=== PATIENT | female | born 1960 | race Caucasian/White ===

== ENCOUNTER 2020-06-22 17:10 | Observation (INO) ==
[2020-06-22 17:47] LABS: Bacteria,Urine Few per hpf (None-Few); Bilirubin,Urine Negative (Negative); Blood,Urine Negative (Negative); Clarity,Urine Clear (Clear); Color,Urine Yellow (Yellow); Glucose,Urine (UA) Normal (Normal); Ketones,Urine Trace mg/dL (Negative); Leukocyte Esterase,Urine Trace (Negative); Nitrite,Urine Negative (Negative); Protein,Urine Negative (Neg-Trace); RBC,Urine 0-3 per hpf (0-3); Specific Gravity,Urine 1.023 (1.010-1.025); Squamous Epithelial Cell,Urine Few per hpf (None-Few); Urobilinogen,Urine Normal (Normal); WBC,Urine 0-3 per hpf (0-3)
[2020-06-22] MEDS ORDERED: Ketorolac 15 MG/ML VIAL IVP ONE (17:54)
[2020-06-22 17:59] LABS: Hematocrit 38.8 % (35.3-44.9); Hemoglobin 12.8 g/dL (11.5-15.4); Mean Corpuscular Hemoglobin 29.4 pg (28.0-33.3); Mean Platelet Volume 9.3 fL (9.4-12.4); Platelet Count 213 K/mcL (140-400); Red Blood Count 4.36 M/mcL (3.82-4.97); Red Cell Distribution Width 12.6 % (11.5-14.5); White Blood Count 5.7 K/mcL (4.3-11.1)
[2020-06-22 18:14] LABS: Alanine Aminotransferase 257 Units/L (7-52); Albumin 4.2 g/dL (3.5-5.7); Albumin/Globulin Ratio 1.6 (1.1-2.2); Alkaline Phosphatase 317 Units/L (34-104); Aspartate Amino Transferase 126 Units/L (13-39); BUN/Creatinine Ratio 14 (6-26); Bilirubin,Direct 0.9 mg/dL (0.0-0.2); Bilirubin,Total 1.9 mg/dL (0.3-1.0); Blood Urea Nitrogen 12 mg/dL (8-23); Calcium 9.7 mg/dL (8.6-10.3); Carbon Dioxide 28 mEq/L (23-29); Chloride 102 mEq/L (98-107); Globulin 2.7 g/dL (2.4-3.5); Glucose 125 mg/dL (70-105); Lipase 43 Units/L (11-82); Osmolality,Calculated 289 (280-300); Potassium 3.1 mEq/L (3.5-5.1); Sodium 139 mEq/L (136-145); Total Protein 6.9 g/dL (6.4-8.9); eGFR For African Americans > 60 (> 60); eGFR For Non-African Americans > 60 (> 60)
[2020-06-22] MEDS ORDERED: *HR* FentaNYL (PF) 100 MCG/2 ML VIAL IVP ONE (18:18)
[2020-06-22] MEDS ORDERED: Ondansetron 4 MG/2 ML VIAL IVP ONE (18:19)
[2020-06-22] MEDS ORDERED: Potassium Effervescent 25 MEQ TABLET.EFF PO ONE (18:53)
[2020-06-22] MEDS ORDERED: 0.9 % Sodium Chloride 1,000 ML IVC ONE (20:52)
[2020-06-22] MEDS ORDERED: Naloxone 0.4 MG/ML INJ IVP PRN (21:09)
[2020-06-22] MEDS ORDERED: Ondansetron 4 MG/2 ML VIAL IVP PRN (21:09)
[2020-06-22] MEDS ORDERED: Ketorolac 15 MG/ML VIAL IVP PRN (21:09)
[2020-06-22] MEDS ORDERED: 0.9 % Sodium Chloride 1,000 ML IVC SCH (21:15)
[2020-06-22 22:10] LABS: Adenovirus Not Detected (Not Detect); Bordetella Pertussis Not Detected (Not Detect); Chlamydophila pneumoniae Not Detected (Not Detect); Coronavirus 229E Not Detected (Not Detect); Coronavirus HKU1 Not Detected (Not Detect); Coronavirus NL63 Not Detected (Not Detect); Coronavirus OC43 Not Detected (Not Detect); Human Metapneumovirus Not Detected (Not Detect); Human Rhinovirus/Enterovirus Not Detected (Not Detect); Influenza A Subtype 2009 H1 Not Detected (Not Detect); Influenza B Not Detected (Not Detect); Mycoplasma pneumoniae Not Detected (Not Detect); Parainfluenza Virus 1 Not Detected (Not Detect); Parainfluenza Virus 2 Not Detected (Not Detect); Parainfluenza Virus 3 Not Detected (Not Detect); Parainfluenza Virus 4 Not Detected (Not Detect); Respiratory Syncytial Virus Not Detected (Not Detect); SARS-CoV-2 Not Detected (Not Detect)
[2020-06-23] MEDS ORDERED: Ondansetron 4 MG/2 ML VIAL IVP PRN ×4 (00:23→14:44)
[2020-06-23] MEDS ORDERED: Pantoprazole 40 MG VIAL IVP SCH (00:30)
[2020-06-23] MEDS ORDERED: *HR* OxyCODONE Immed Rel 5 MG TABLET PO PRN ×3 (03:59→14:44)
[2020-06-23 05:04] LABS: Prothrombin Time 11.1 Seconds (9.4-12.1)
[2020-06-23 05:05] LABS: Activated Partial Thrombo Time 27.5 Seconds (26.0-36.0)
[2020-06-23 05:10] LABS: Basophils # 0.1 K/mcL (0.0-0.2); Basophils % 1.1 %; Eosinophils % 0.9 %; Hematocrit 37.6 % (35.3-44.9); Hemoglobin 12.4 g/dL (11.5-15.4); Immature Granulocytes % 0.2 % (0-4); Lymphocytes # 1.5 K/mcL (0.6-4.6); Lymphocytes % 33.5 %; Mean Corpuscular Hemoglobin 30.7 pg (28.0-33.3); Mean Corpuscular Volume 93.1 fL (83.0-100.0); Mean Platelet Volume 9.9 fL (9.4-12.4); Monocytes # 0.3 K/mcL (0.0-1.3); Monocytes % 7.5 %; Neutrophils # 2.5 K/mcL (1.6-8.9); Platelet Count 194 K/mcL (140-400); Red Blood Count 4.04 M/mcL (3.82-4.97); Red Cell Distribution Width 12.6 % (11.5-14.5); Segmented Neutrophils % 56.8 %; White Blood Count 4.4 K/mcL (4.3-11.1)
[2020-06-23 05:12] LABS: Albumin 3.7 g/dL (3.5-5.7); Albumin/Globulin Ratio 1.5 (1.1-2.2); Bilirubin,Direct 1.7 mg/dL (0.0-0.2); Bilirubin,Indirect 1.3 mg/dL (0.0-1.0); Globulin 2.4 g/dL (2.4-3.5); Total Protein 6.1 g/dL (6.4-8.9)
[2020-06-23 05:13] LABS: Alanine Aminotransferase 216 Units/L (7-52); Albumin 3.7 g/dL (3.5-5.7); Albumin/Globulin Ratio 1.5 (1.1-2.2); Alkaline Phosphatase 277 Units/L (34-104); Aspartate Amino Transferase 112 Units/L (13-39); BUN/Creatinine Ratio 12 (6-26); Blood Urea Nitrogen 11 mg/dL (8-23); Calcium 9.1 mg/dL (8.6-10.3); Carbon Dioxide 29 mEq/L (23-29); Chloride 105 mEq/L (98-107); Globulin 2.4 g/dL (2.4-3.5); Glucose 113 mg/dL (70-105); Osmolality,Calculated 290 (280-300); Potassium 3.7 mEq/L (3.5-5.1); Sodium 140 mEq/L (136-145); Total Protein 6.1 g/dL (6.4-8.9); eGFR For African Americans > 60 (> 60); eGFR For Non-African Americans 60 (> 60)
[2020-06-23 05:28] LABS: Thyroid Stimulating Hormone 3.102 mcIU/mL (0.340-5.600)
[2020-06-23] MEDS ORDERED: *HR* FentaNYL (PF) 100 MCG/2 ML VIAL ONE (12:03)
[2020-06-23] MEDS ORDERED: *HR* Propofol 200 MG/20 ML VIAL IVP ONE (12:04)
[2020-06-23] MEDS ORDERED: Lidocaine -MPF 2% 2 ML VIAL ONE (12:05)
[2020-06-23] MEDS ORDERED: Ondansetron 4 MG/2 ML VIAL ONE (12:05)
[2020-06-23] MEDS ORDERED: *HR* Succinylcholine 200 MG/10 ML VIAL IVP ONE (12:05)
[2020-06-23] MEDS ORDERED: Dexamethasone 4 MG/ML VIAL ONE (12:05)
[2020-06-23] MEDS ORDERED: *HR* Rocuronium Bromide 50 MG/5 ML VIAL ONE (12:05)
[2020-06-23] MEDS ORDERED: Lidocaine HCL 4 ML Topical Solution (Laryng-O-Jet Kit Sterile Pak) TP ONE (12:06)
[2020-06-23] MEDS ORDERED: *HR* Promethazine 25 MG/ML VIAL IVP PRN (12:22)
[2020-06-23] MEDS ORDERED: *HR* HYDROmorphone PF 0.5 MG/0.5 ML SYRINGE IVP PRN (12:22)
[2020-06-23] MEDS ORDERED: ceFAZolin 2,000 MG in 0.9 % Sodium Chloride 100 ML IVPB ONE (12:46)
[2020-06-23] MEDS ORDERED: Ketorolac 30 MG/ML VIAL ONE (13:21)
[2020-06-23] MEDS ORDERED: Naloxone 0.4 MG/ML INJ IVP PRN (14:09)
[2020-06-23] MEDS ORDERED: *HR* OxyCODONE/APAP 5/325 TABLET PO PRN (14:09)
[2020-06-23] MEDS ORDERED: *HR* Meperidine 25 MG/ML SYRINGE IVP PRN (14:44)
[2020-06-23] MEDS: *HR* Meperidine 25 MG/ML SYRINGE IVP PRN ×2 (14:45→15:00)
[2020-06-23] MEDS ORDERED: Ringers Solution, Lactated 1,000 ML IVC SCH (14:45)
[2020-06-23] MEDS: Ketorolac 15 MG/ML VIAL IVP SCH ×2 (17:25→23:51)
[2020-06-23] MEDS: CeFAZolin 2 GM/120 ML BAG IVPB SCH ×2 (17:26→23:52)
[2020-06-24 02:11] LABS: Basophils % 0.4 %; Hematocrit 36.7 % (35.3-44.9); Immature Granulocytes % 0.2 % (0-4); Lymphocytes # 0.6 K/mcL (0.6-4.6); Lymphocytes % 11.6 %; Mean Corpuscular HGB Conc 32.7 g/dL (31.6-35.5); Mean Corpuscular Hemoglobin 30.5 pg (28.0-33.3); Mean Corpuscular Volume 93.1 fL (83.0-100.0); Mean Platelet Volume 10.2 fL (9.4-12.4); Monocytes # 0.3 K/mcL (0.0-1.3); Monocytes % 5.7 %; Neutrophils # 3.9 K/mcL (1.6-8.9); Platelet Count 167 K/mcL (140-400); Red Blood Count 3.94 M/mcL (3.82-4.97); Red Cell Distribution Width 12.5 % (11.5-14.5); Segmented Neutrophils % 82.1 %; White Blood Count 4.8 K/mcL (4.3-11.1)
[2020-06-24 02:34] LABS: Alanine Aminotransferase 201 Units/L (7-52); Albumin 3.5 g/dL (3.5-5.7); Albumin/Globulin Ratio 1.6 (1.1-2.2); Alkaline Phosphatase 235 Units/L (34-104); Aspartate Amino Transferase 121 Units/L (13-39); BUN/Creatinine Ratio 11 (6-26); Bilirubin,Total 0.7 mg/dL (0.3-1.0); Blood Urea Nitrogen 8 mg/dL (8-23); Calcium 8.5 mg/dL (8.6-10.3); Carbon Dioxide 24 mEq/L (23-29); Chloride 107 mEq/L (98-107); Globulin 2.2 g/dL (2.4-3.5); Glucose 105 mg/dL (70-105); Osmolality,Calculated 289 (280-300); Potassium 4.2 mEq/L (3.5-5.1); Sodium 140 mEq/L (136-145); Total Protein 5.7 g/dL (6.4-8.9); eGFR For African Americans > 60 (> 60); eGFR For Non-African Americans > 60 (> 60)
[2020-06-24] MEDS: Ketorolac 15 MG/ML VIAL IVP SCH (06:25)
[2020-06-24] MEDS ORDERED: Pantoprazole 40 MG VIAL IVP SCH (09:00)
[2020-06-24] MEDS: CeFAZolin 2 GM/120 ML BAG IVPB SCH (09:54)
[2020-06-24 10:43] VITALS: BP 123/74
[2020-06-24] MEDS ORDERED: FLU Vac QV 20-21 (6Month+)/PF 0.5 ML SYRINGE IM ONE (12:17)
== END 2020-06-24 12:45 | disposition home or self-care (01) ==
LOC: EMEROOARM 17:10 → 3ANU 17:10 → SUATTDRO 22:15 → 3ANU 22:40
PROVIDERS: ADMIT Student in an Organized Health Care Education/Training Program; ATTEND Student in an Organized Health Care Education/Training Program

== ENCOUNTER 2020-06-25 22:10 | Observation (INO) ==
[2020-06-25] MEDS ORDERED: Isovue-370 500 ML BOTTLE IVP ONE (22:24)
[2020-06-25] MEDS ORDERED: Ondansetron 4 MG/2 ML VIAL IVP ONE (22:25)
[2020-06-25] MEDS ORDERED: *HR* FentaNYL (PF) 100 MCG/2 ML VIAL IVP ONE (22:25)
[2020-06-25] MEDS ORDERED: Famotidine 20 MG/2 ML VIAL IVP ONE (22:32)
[2020-06-25 22:52] LABS: Basophils # 0.1 K/mcL (0.0-0.2); Basophils % 0.7 %; Eosinophils % 0.4 %; Hematocrit 40.8 % (35.3-44.9); Hemoglobin 12.9 g/dL (11.5-15.4); Immature Granulocytes % 0.5 % (0-4); Lymphocytes # 1.5 K/mcL (0.6-4.6); Lymphocytes % 20.4 %; Mean Corpuscular HGB Conc 31.6 g/dL (31.6-35.5); Mean Corpuscular Hemoglobin 29.7 pg (28.0-33.3); Mean Platelet Volume 9.7 fL (9.4-12.4); Monocytes # 0.5 K/mcL (0.0-1.3); Monocytes % 7.2 %; Neutrophils # 5.3 K/mcL (1.6-8.9); Platelet Count 187 K/mcL (140-400); Red Blood Count 4.34 M/mcL (3.82-4.97); Red Cell Distribution Width 12.4 % (11.5-14.5); Segmented Neutrophils % 70.8 %
[2020-06-25 22:55] LABS: White Blood Count 7.5 K/mcL (4.3-11.1)
[2020-06-25 22:59] LABS: Prothrombin Time 11.4 Seconds (9.4-12.1)
[2020-06-25 23:23] LABS: Alanine Aminotransferase 99 Units/L (7-52); Albumin 3.9 g/dL (3.5-5.7); Albumin/Globulin Ratio 1.3 (1.1-2.2); Alkaline Phosphatase 211 Units/L (34-104); Aspartate Amino Transferase 56 Units/L (13-39); BUN/Creatinine Ratio 13 (6-26); Bilirubin,Direct 0.2 mg/dL (0.0-0.2); Bilirubin,Indirect 0.6 mg/dL (0.0-1.0); Bilirubin,Total 0.8 mg/dL (0.3-1.0); Blood Urea Nitrogen 11 mg/dL (8-23); Calcium 8.9 mg/dL (8.6-10.3); Carbon Dioxide 28 mEq/L (23-29); Chloride 104 mEq/L (98-107); Glucose 106 mg/dL (70-105); Lipase 15 Units/L (11-82); Osmolality,Calculated 288 (280-300); Potassium 3.8 mEq/L (3.5-5.1); Sodium 139 mEq/L (136-145); Total Protein 6.9 g/dL (6.4-8.9); eGFR For African Americans > 60 (> 60); eGFR For Non-African Americans > 60 (> 60)
[2020-06-26 01:02] LABS: Bilirubin,Urine Negative (Negative); Blood,Urine Negative (Negative); Clarity,Urine Clear (Clear); Color,Urine Colorless (Yellow); Glucose,Urine (UA) Normal (Normal); Ketones,Urine Negative (Negative); Leukocyte Esterase,Urine Negative (Negative); Nitrite,Urine Negative (Negative); PH,Urine 6.5 pH Units (5.0-8.0); Protein,Urine Negative (Neg-Trace); Urobilinogen,Urine Normal (Normal)
[2020-06-26] MEDS ORDERED: *HR* FentaNYL (PF) 100 MCG/2 ML VIAL IVP ONE (01:03)
[2020-06-26] MEDS ORDERED: *HR* OxyCODONE/APAP 10/325 TABLET PO PRN (04:11)
[2020-06-26] MEDS: Morphine Sulfate 2 MG/ML SYRINGE IVP PRN ×2 (04:58→11:30)
[2020-06-26] MEDS: 0.9 % Sodium Chloride 1,000 ML IVC SCH ×3 (04:59→23:56)
[2020-06-26] MEDS ORDERED: Ondansetron 4 MG/2 ML VIAL IVP PRN ×2 (05:02→08:44)
[2020-06-26] MEDS ORDERED: Ondansetron 4 MG/2 ML VIAL IVP SCH (06:00)
[2020-06-26] MEDS ORDERED: Ketorolac 30 MG/ML VIAL IVP ONE (08:43)
[2020-06-26] MEDS ORDERED: Pantoprazole 40 MG VIAL IVP SCH (09:00)
[2020-06-26 09:46] LABS: Basophils # 0.1 K/mcL (0.0-0.2); Basophils % 0.7 %; Hematocrit 36.8 % (35.3-44.9); Immature Granulocytes % 0.5 % (0-4); Lymphocytes # 0.9 K/mcL (0.6-4.6); Lymphocytes % 9.6 %; Mean Corpuscular HGB Conc 32.6 g/dL (31.6-35.5); Mean Corpuscular Hemoglobin 29.6 pg (28.0-33.3); Mean Corpuscular Volume 90.9 fL (83.0-100.0); Mean Platelet Volume 10.2 fL (9.4-12.4); Monocytes # 0.7 K/mcL (0.0-1.3); Monocytes % 7.8 %; Neutrophils # 7.2 K/mcL (1.6-8.9); Platelet Count 189 K/mcL (140-400); Red Blood Count 4.05 M/mcL (3.82-4.97); Red Cell Distribution Width 12.2 % (11.5-14.5); Segmented Neutrophils % 81.4 %; White Blood Count 8.8 K/mcL (4.3-11.1)
[2020-06-26 09:49] LABS: INR 1.1; Prothrombin Time 12.6 Seconds (9.4-12.1)
[2020-06-26 10:05] LABS: Alanine Aminotransferase 73 Units/L (7-52); Albumin 3.5 g/dL (3.5-5.7); Albumin/Globulin Ratio 1.4 (1.1-2.2); Alkaline Phosphatase 189 Units/L (34-104); Amylase 27 Units/L (29-103); Aspartate Amino Transferase 38 Units/L (13-39); BUN/Creatinine Ratio 13 (6-26); Bilirubin,Direct 0.3 mg/dL (0.0-0.2); Bilirubin,Indirect 0.6 mg/dL (0.0-1.0); Bilirubin,Total 0.9 mg/dL (0.3-1.0); Blood Urea Nitrogen 9 mg/dL (8-23); Calcium 8.7 mg/dL (8.6-10.3); Carbon Dioxide 29 mEq/L (23-29); Chloride 105 mEq/L (98-107); Globulin 2.5 g/dL (2.4-3.5); Glucose 112 mg/dL (70-105); Lipase 9 Units/L (11-82); Magnesium 1.7 mg/dL (1.6-2.6); Osmolality,Calculated 287 (280-300); Phosphorous 2.9 mg/dL (2.7-4.5); Potassium 3.6 mEq/L (3.5-5.1); Sodium 139 mEq/L (136-145); eGFR For African Americans > 60 (> 60); eGFR For Non-African Americans > 60 (> 60)
[2020-06-26] MEDS: Pantoprazole 40 MG in 0.9 % Sodium Chloride Mini Bag 100 ML IVC SCH ×3 (11:12→23:41)
[2020-06-26] MEDS: *HR* Promethazine 25 MG/ML VIAL IVP PRN ×2 (11:12→18:48)
[2020-06-26] MEDS: Piperacillin/Tazobactam 3.375 GM in 0.9 % Sodium Chloride Mini Bag 100 ML IVPB SCH ×3 (12:35→23:45)
[2020-06-26] MEDS: Acetaminophen IV 1,000 MG/100 ML INFUS..BTL IVPB SCH ×3 (12:36→23:44)
[2020-06-26] MEDS: Ketorolac 15 MG/ML VIAL IVP SCH ×3 (12:39→23:44)
[2020-06-26] MEDS ORDERED: Lidocaine -MPF 2% 2 ML VIAL ONE ×2 (14:55→16:23)
[2020-06-26] MEDS ORDERED: *HR* Propofol 200 MG/20 ML VIAL IVP ONE (14:55)
[2020-06-26] MEDS ORDERED: Lidocaine -MPF 4% 5 ML AMPUL ONE (14:56)
[2020-06-26] MEDS ORDERED: Ondansetron 4 MG/2 ML VIAL ONE ×2 (14:56→16:51)
[2020-06-26] MEDS ORDERED: *HR* Succinylcholine 200 MG/10 ML VIAL IVP ONE ×2 (14:57→16:23)
[2020-06-26] MEDS ORDERED: *HR* Meperidine 25 MG/ML SYRINGE IVP PRN (15:45)
[2020-06-26] MEDS ORDERED: *HR* FentaNYL (PF) 100 MCG/2 ML VIAL IVP PRN (15:45)
[2020-06-26] MEDS ORDERED: *HR* Promethazine 25 MG/ML VIAL IVP PRN (15:45)
[2020-06-26] MEDS ORDERED: *HR* FentaNYL (PF) 100 MCG/2 ML VIAL ONE (16:23)
[2020-06-26] MEDS ORDERED: Dexamethasone 4 MG/ML VIAL ONE (16:51)
[2020-06-26] MEDS ORDERED: *HR* PHENYLEPHRINE 1,000 MCG/10 ML SYRINGE IVP ONE (16:53)
[2020-06-26] MEDS ORDERED: Indomethacin 50 MG SUPP.RECT RC ONE (17:07)
[2020-06-27] MEDS: Pantoprazole 40 MG in 0.9 % Sodium Chloride Mini Bag 100 ML IVC SCH ×4 (04:16→08:53)
[2020-06-27] MEDS: Ketorolac 15 MG/ML VIAL IVP SCH ×2 (05:09→12:07)
[2020-06-27] MEDS: Acetaminophen IV 1,000 MG/100 ML INFUS..BTL IVPB SCH ×2 (05:12→12:07)
[2020-06-27 07:45] LABS: Basophils % 0.1 %; Hematocrit 33.6 % (35.3-44.9); Hemoglobin 11.1 g/dL (11.5-15.4); Immature Granulocytes % 0.4 % (0-4); Lymphocytes # 0.7 K/mcL (0.6-4.6); Lymphocytes % 9.4 %; Mean Corpuscular Hemoglobin 30.5 pg (28.0-33.3); Mean Corpuscular Volume 92.3 fL (83.0-100.0); Mean Platelet Volume 10.2 fL (9.4-12.4); Monocytes # 0.5 K/mcL (0.0-1.3); Monocytes % 6.6 %; Neutrophils # 5.9 K/mcL (1.6-8.9); Platelet Count 158 K/mcL (140-400); Red Blood Count 3.64 M/mcL (3.82-4.97); Red Cell Distribution Width 12.2 % (11.5-14.5); Segmented Neutrophils % 83.5 %; White Blood Count 7.1 K/mcL (4.3-11.1)
[2020-06-27 08:00] LABS: Alanine Aminotransferase 53 Units/L (7-52); Albumin 3.1 g/dL (3.5-5.7); Albumin/Globulin Ratio 1.3 (1.1-2.2); Alkaline Phosphatase 155 Units/L (34-104); Aspartate Amino Transferase 22 Units/L (13-39); BUN/Creatinine Ratio 18 (6-26); Bilirubin,Direct 0.4 mg/dL (0.0-0.2); Bilirubin,Indirect 0.5 mg/dL (0.0-1.0); Bilirubin,Total 0.9 mg/dL (0.3-1.0); Blood Urea Nitrogen 11 mg/dL (8-23); Calcium 8.6 mg/dL (8.6-10.3); Carbon Dioxide 28 mEq/L (23-29); Chloride 107 mEq/L (98-107); Globulin 2.4 g/dL (2.4-3.5); Glucose 135 mg/dL (70-105); Lipase 45 Units/L (11-82); Osmolality,Calculated 287 (280-300); Potassium 3.8 mEq/L (3.5-5.1); Sodium 138 mEq/L (136-145); Total Protein 5.5 g/dL (6.4-8.9); eGFR For African Americans > 60 (> 60); eGFR For Non-African Americans > 60 (> 60)
[2020-06-27] MEDS: Piperacillin/Tazobactam 3.375 GM in 0.9 % Sodium Chloride Mini Bag 100 ML IVPB SCH (08:52)
[2020-06-27 10:53] VITALS: BP 111/69
[2020-06-27] MEDS: 0.9 % Sodium Chloride 1,000 ML IVC SCH (12:07)
[2020-06-27] MEDS: Morphine Sulfate 2 MG/ML SYRINGE IVP PRN (13:25)
== END 2020-06-27 13:57 | disposition home or self-care (01) ==
LOC: EMEROOARM 22:10 → CDU 22:10 → 3ANU 06-26 16:10
PROVIDERS: ADMIT Surgery; ATTEND Surgery